=== PATIENT | female | born 1980 | race Caucasian/White ===

== ENCOUNTER → 2017-10-09 14:43 | Outpatient (CLI) | payer OTHER ==
[~2017-10-09 14:43] MED LIST: PRENAVITE1 TAB PO
[2017-10-09 15:43] LABS: APPEARANCE CLEAR (CLEAR); BILIRUBIN NEGATIVE (NEGATIVE); COLOR YELLOW (YELLOW); GLUCOSE NEGATIVE (NEGATIVE); KETONE SMALL mg/dL (NEGATIVE); NITRITE NEGATIVE (NEGATIVE); PROTEIN NEGATIVE (NEGATIVE); SPECIFIC GRAVITY 1.015 (1.005-1.020); UROBILINOGEN NORMAL (NORMAL)
[2017-10-09 17:07] LABS: UDS - AMPHET NEGATIVE QUAL (NEGATIVE); UDS - BARB NEGATIVE QUAL (NEGATIVE); UDS - BENZO NEGATIVE QUAL (NEGATIVE); UDS - COCAINE NEGATIVE QUAL (NEGATIVE); UDS - OPIATE NEGATIVE QUAL (NEGATIVE); UDS - PCP NEGATIVE QUAL (NEGATIVE); UDS - THC NEGATIVE QUAL (NEGATIVE)
[2017-11-09 09:18] VITALS: BMI 36.6
== END | disposition home or self-care (01) ==
LOC: D.LDO 14:43
PROVIDERS: Obstetrics & Gynecology
DX: O26.893 Other specified pregnancy related conditions, third trimester (principal); Z3A.28 28 weeks gestation of pregnancy

== ENCOUNTER → 2017-10-11 10:53 | Outpatient (CLI) | payer OTHER ==
[2017-10-11 11:42] LABS: BASOPHILS 0.3 % (0-2); EOSINOPHILS 1.9 % (0-7); HEMATOCRIT 37.8 % (36.0-48.0); HEMOGLOBIN 13.4 g/dL (12-16); LYMPHOCYTES 16.2 % (15-50); MCH 33.7 pg (26.0-34.0); MCHC 35.4 g/dL (31.0-37.0); MONOCYTES 8.4 % (2-11); NEUTROPHILS 72.2 % (40-80); PLATELET COUNT 222 10x3/uL (130-400); RBC 3.98 10x6/uL (4.00-5.40); RDW 12.8 % (11.5-14.5); WBC 7.4 10x3/uL (4.8-10.8)
[2017-11-09 09:18] VITALS: BMI 36.6
== END | disposition home or self-care (01) ==
LOC: D.LDO 10:53
PROVIDERS: Obstetrics & Gynecology
DX: O26.893 Other specified pregnancy related conditions, third trimester (principal); Z3A.28 28 weeks gestation of pregnancy

== ENCOUNTER → 2017-11-06 15:43 | Outpatient (CLI) | payer OTHER ==
[2017-11-09 09:18] VITALS: BMI 36.6
== END | disposition home or self-care (01) ==
LOC: D.LDO 15:43
DX: O16.3 Unspecified maternal hypertension, third trimester (principal); Z3A.33 33 weeks gestation of pregnancy

== ENCOUNTER 2017-11-08 19:02 | Inpatient (IN) | payer OTHER ==
[~2017-11-08] VITALS: Ht 154.9 cm; Wt 88.0 kg
[2017-11-08 20:08] LABS: HEMATOCRIT 38.3 % (36.0-48.0); HEMOGLOBIN 13.5 g/dL (12-16); MCH 33.1 pg (26.0-34.0); MCHC 35.2 g/dL (31.0-37.0); MCV 93.9 fL (80.0-100.0); MEAN PLATELET VOLUME 10.5 fL (7.4-10.4); RBC 4.08 10x6/uL (4.00-5.40); RDW 12.4 % (11.5-14.5); WBC 11.5 10x3/uL (4.8-10.8)
[2017-11-08 21:06] LABS: ALBUMIN 2.7 g/dL (3.4-5.0); ALKALINE PHOSPHATASE 113 U/L (46-116); ALT (SGPT) 19 U/L (10-68); BILIRUBIN - TOTAL 0.02 mg/dL (0.2-1.3); CALC OSMOLALITY 277 mosm/kg (275-300); CHLORIDE - SERUM 105 mmol/L (98-107); CREATININE - SERUM 0.5 mg/dL (0.6-1.3); GLUCOSE 85 mg/dL (74-106); LDH 166 U/L (81-234); MAGNESIUM - SERUM 1.8 mg/dL (1.8-2.4); POTASSIUM - SERUM 4.4 mmol/L (3.5-5.1); PROTEIN - SERUM 6.5 g/dL (6.4-8.2); SODIUM 139 mmol/L (136-145); UREA NITROGEN 16 mg/dL (7-18); URIC ACID 4.2 mg/dL (2.6-7.2); eGFR NON AFRICAN AMERICAN > 90 mL/min (90-120)
[2017-11-08 22:56] VITALS: BP 130/76; BMI 36.7
[2017-11-08] MEDS ORDERED: PRENAVITE1 TAB PO (22:56)
[2017-11-09 00:30] LABS: APPEARANCE CLEAR (CLEAR); BILIRUBIN NEGATIVE (NEGATIVE); COLOR YELLOW (YELLOW); GLUCOSE 100 mg/dL (NEGATIVE); KETONE SMALL mg/dL (NEGATIVE); NITRITE NEGATIVE (NEGATIVE); PROTEIN NEGATIVE (NEGATIVE); UROBILINOGEN NORMAL (NORMAL)
[2017-11-09 04:05] LABS: MAGNESIUM - SERUM 4.6 mg/dL (1.8-2.4)
[2017-11-09 04:11] LABS: CREATININE - SERUM 0.5 mg/dL (0.6-1.3)
[2017-11-09 09:18] VITALS: Ht 154.9 cm; Wt 88.0 kg
[2017-11-10] VITALS (17 sets, daily range): BP systolic 126–168; BP diastolic 62–89
[2017-11-11 03:05] VITALS: BP 124/79
[2017-11-11 07:13] LABS: BASOPHILS 0.1 % (0-2); EOSINOPHILS 0.5 % (0-7); HEMOGLOBIN 10.3 g/dL (12-16); IMMATURE GRANULOCYTES 0.7 % (0-5); LYMPHOCYTES 16.1 % (15-50); MCH 31.7 pg (26.0-34.0); MCHC 33.2 g/dL (31.0-37.0); MCV 95.4 fL (80.0-100.0); MEAN PLATELET VOLUME 10.2 fL (7.4-10.4); MONOCYTES 7.1 % (2-11); NEUTROPHILS 75.5 % (40-80); RBC 3.25 10x6/uL (4.00-5.40); RDW 12.8 % (11.5-14.5); WBC 10.5 10x3/uL (4.8-10.8)
[2017-11-11 07:15] LABS: PLATELET COUNT 241 10x3/uL (130-400)
[2017-11-11 07:26] VITALS: BP 137/79
[2017-11-11 12:15] VITALS: BP 124/69
[2017-11-11 16:07] VITALS: BP 131/69
[2017-11-11 20:09] VITALS: BP 125/97
[2017-11-11 23:47] VITALS: BP 129/73
[2017-11-12 07:44] VITALS: BP 134/80
== END 2017-11-12 16:50 | disposition home or self-care (01) | DRG 765 ==
LOC: D.LDO 19:02 → D.LD 21:57
PROVIDERS: Obstetrics & Gynecology
PROC: 10D00Z1 Extraction of Products of Conception, Low, Open Approach (ICD-10-PCS; principal; 2017-11-10 07:30)
DX: O14.94 Unspecified pre-eclampsia, complicating childbirth (principal); O98.82 Other maternal infectious and parasitic diseases complicating childbirth; Z3A.33 33 weeks gestation of pregnancy; Z37.0 Single live birth; O99.334 Smoking (tobacco) complicating childbirth; O99.344 Other mental disorders complicating childbirth; F41.9 Anxiety disorder, unspecified; B37.9 Candidiasis, unspecified